=== PATIENT | female | born 1960 | race Caucasian/White ===

== ENCOUNTER 2016-10-05 12:46 | Inpatient (IN) | payer OTHER ==
[~2016-10-05 12:46] MED LIST: ASPIRIN81 M1 PO; MOBIC15 M2 PO; NORCO 5-325 TA1 EACH PO; OMEPRAZOLE20 M4 PO; PERIDEX118 ML SSP; TYLENOL EXTRA500 M1 PO
[2016-10-05 13:40] LABS: PROTHROMBIN TIME 11.6 SECONDS (9.0-13.6)
[2016-10-05 14:42] LABS: URINE BILIRUBIN MODERATE (NEG); URINE BLOOD SMALL (NEG); URINE GLUCOSE (UA) NEGATIVE (NEG); URINE KETONE SMALL (NEG); URINE LEUKOCYTE ESTERASE POSITIVE (NEG); URINE NITRITE NEGATIVE (NEG); URINE PROTEIN MODERATE (NEG)
[2016-10-05 14:43] LABS: URINE APPEARANCE CLOUDY; URINE COLOR DARK YELLOW
[2016-10-05 14:50] LABS: URINE OTHER VOLUME 4 ML
[2016-10-05 14:51] LABS: URINE EPITHELIAL CELLS 0 /[HPF] (0-10); URINE RBC 0 /[HPF] (0-5)
[2016-10-05 14:52] LABS: URINE BACTERIA 2+; URINE WBC 0-2 /[HPF] (0-5)
[2016-10-06 06:09] LABS: HCT-HEMATOCRIT 31.4 % (34.0-49.0); HGB-HEMOGLOBIN 10.5 gm/dl (12.0-15.5); IMMATURE GRANULOCYTES ABSOLUTE 0.01 tho/cmm (0-0.03); IMMATURE GRANULOCYTES PERCENT 0.2 % (0-0.3); LYMPH % 14.9 % (20-45); LYMPH ABSOLUTE COUNT 0.7 tho/cmm (0.8-4.5); MCHC MEAN CORPUSCULAR HGB CONC 33.4 % (32.0-36.0); MCV (MEAN CELL VOLUME) 104.7 fl (82.0-96.0); MEAN PLATELET VOLUME 11.7 cmc (9.4-12.4); MONOCYTE ABSOLUTE COUNT 0.3 tho/cmm (0.0-1.2); NEUTROPHIL ABSOLUTE COUNT 3.8 tho/cmm (1.6-8.0); NEUTROPHIL-AUTOMATED 3.8 tho/cmm (1.6-8.0); NEUTROPHILS % 78.9 % (40-80); RED CELL DISTRIBUTION WIDTH 12.8 % (12.4-16.4); WHITE BLOOD COUNT 4.8 tho/cmm (4.0-10.0)
[2016-10-06 10:00] LABS: PLATELET COUNT 92 tho/cmm (150-450)
[2016-10-08] MEDS ORDERED: ASPIRIN325 M3 PO (13:00)
[2016-10-08] MEDS ORDERED: MOBIC7.5 M2 PO (13:01)
[2016-10-08] MEDS ORDERED: ROXICODONE5 M2 PO (13:03)
[2016-10-08] MEDS ORDERED: ULTRAM50 M1 PO (13:05)
[2017-01-06] MEDS ORDERED: IBUPROFEN600 M1 PO (18:19)
[2017-01-06] MEDS ORDERED: NORCO 5-325 TA1 EACH PO (19:28)
== END 2016-10-08 16:24 | DRG 470 ==
LOC: SHSA 12:46 → ORE 16:28 → PACU 20:20 → 5EA 21:00
PROVIDERS: Physician Assistant; ADMIT Orthopaedic Surgery
PROC: 0SR904A Replacement of Right Hip Joint with Ceramic on Polyethylene Synthetic Substitute, Uncemented, Open Approach (ICD-10-PCS; principal; 2016-10-05)
DX: M16.11 Unilateral primary osteoarthritis, right hip (principal); M87.051 Idiopathic aseptic necrosis of right femur; K76.0 Fatty (change of) liver, not elsewhere classified; D47.2 Monoclonal gammopathy; K21.9 Gastro-esophageal reflux disease without esophagitis; B19.20 Unspecified viral hepatitis C without hepatic coma; Z79.899 Other long term (current) drug therapy; Z79.82 Long term (current) use of aspirin
CPT/HCPCS: C1776; J0171; J0690; J1885; J2270; J2795

== ENCOUNTER 2016-10-15 18:43 | Inpatient (IN) | payer OTHER ==
[~2016-10-15 18:43] MED LIST changes: +ASPIRIN325 M3 PO; +MOBIC7.5 M2 PO; +ROXICODONE5 M2 PO; +ULTRAM50 M1 PO
[2016-10-15] MEDS ORDERED: LAXATIVE5 M4 PO (19:08)
[2016-10-15 19:29] LABS: BASO % 0.1 % (0-2); HCT-HEMATOCRIT 30.4 % (34.0-49.0); HGB-HEMOGLOBIN 10.3 gm/dl (12.0-15.5); IMMATURE GRANULOCYTES ABSOLUTE 0.16 tho/cmm (0-0.03); IMMATURE GRANULOCYTES PERCENT 0.9 % (0-0.3); LYMPH % 4.5 % (20-45); LYMPH ABSOLUTE COUNT 0.8 tho/cmm (0.8-4.5); MCH (MEAN CORPUSCULAR HGB) 34.4 pg (28.0-32.0); MCHC MEAN CORPUSCULAR HGB CONC 33.9 % (32.0-36.0); MCV (MEAN CELL VOLUME) 101.7 fl (82.0-96.0); MEAN PLATELET VOLUME 10.8 cmc (9.4-12.4); MONO % 5.4 % (0-12); MONOCYTE ABSOLUTE COUNT 0.9 tho/cmm (0.0-1.2); NEUTROPHIL ABSOLUTE COUNT 15.4 tho/cmm (1.6-8.0); NEUTROPHIL-AUTOMATED 15.4 tho/cmm (1.6-8.0); NEUTROPHILS % 89.1 % (40-80); PLATELET COUNT 135 tho/cmm (150-450); RED BLOOD COUNT 2.99 mil/cmm (4.00-5.20); WHITE BLOOD COUNT 17.3 tho/cmm (4.0-10.0)
[2016-10-15 19:33] LABS: INR 1.3 INR (0.9-1.1); PROTHROMBIN TIME 14.8 SECONDS (9.0-13.6)
[2016-10-15 19:44] LABS: ANION GAP 16 mmol/L (0-20); BLOOD UREA NITROGEN 22 mg/dl (6-24); CALCIUM 8.2 mg/dl (8.5-10.5); CARBON DIOXIDE-VENOUS 18 mmol/L (22-32); CHLORIDE 96 mmol/l (96-110); CREATININE 1.84 mg/dl (0.50-1.10); GLUCOSE 102 mg/dL (70-110); MAGNESIUM 1.6 mg/dl (1.8-2.6); POTASSIUM 3.8 mmol/L (3.7-5.1); SODIUM 126 mmol/L (135-145); eGFR VALUE FOR BLACK 35 mL/Min
[2016-10-15 21:28] LABS: PROCALCITONIN 28.51 ng/ml (0.05-0.09)
[2016-10-16 00:09] LABS: URINE BILIRUBIN NEGATIVE (NEG); URINE BLOOD MODERATE (NEG); URINE GLUCOSE (UA) NEGATIVE (NEG); URINE KETONE NEGATIVE (NEG); URINE LEUKOCYTE ESTERASE POSITIVE (NEG); URINE NITRITE POSITIVE (NEG); URINE PROTEIN MODERATE (NEG); URINE SPECIFIC GRAVITY 1.015 (1.003-1.030)
[2016-10-16 00:10] LABS: URINE APPEARANCE CLOUDY; URINE COLOR YELLOW
[2016-10-16 00:16] LABS: URINE EPITHELIAL CELLS 0-1 /[HPF] (0-10)
[2016-10-16 00:17] LABS: URINE BACTERIA 2+; URINE WBC FULL FIELD /[HPF] (0-5)
[2016-10-16 03:23] LABS: ALB/GLOB RATIO 0.4 (0.8-2.0); ALKALINE PHOSPHATASE 70 U/L (33-138); ALT/SGPT 22 U/L (12-78); ANION GAP 15 mmol/L (0-20); AST/SGOT 42 U/L (10-40); BILIRUBIN,TOTAL 0.7 mg/dl (0-1.5); BLOOD UREA NITROGEN 22 mg/dl (6-24); CALCIUM 7.4 mg/dl (8.5-10.5); CARBON DIOXIDE-VENOUS 20 mmol/L (22-32); CHLORIDE 98 mmol/l (96-110); CREATININE 1.58 mg/dl (0.50-1.10); GLUCOSE 97 mg/dL (70-110); POTASSIUM 3.8 mmol/L (3.7-5.1); SODIUM 129 mmol/L (135-145); eGFR VALUE FOR BLACK 42 mL/Min
[2016-10-16 04:40] LABS: BASO % 0.1 % (0-2); EOS % 0.2 % (0-7); HCT-HEMATOCRIT 26.2 % (34.0-49.0); HGB-HEMOGLOBIN 8.9 gm/dl (12.0-15.5); IMMATURE GRANULOCYTES ABSOLUTE 0.06 tho/cmm (0-0.03); IMMATURE GRANULOCYTES PERCENT 0.6 % (0-0.3); LYMPH % 5.6 % (20-45); LYMPH ABSOLUTE COUNT 0.6 tho/cmm (0.8-4.5); MCH (MEAN CORPUSCULAR HGB) 34.4 pg (28.0-32.0); MCV (MEAN CELL VOLUME) 101.2 fl (82.0-96.0); MEAN PLATELET VOLUME 10.8 cmc (9.4-12.4); MONO % 6.2 % (0-12); MONOCYTE ABSOLUTE COUNT 0.7 tho/cmm (0.0-1.2); NEUTROPHIL ABSOLUTE COUNT 9.4 tho/cmm (1.6-8.0); NEUTROPHIL-AUTOMATED 9.4 tho/cmm (1.6-8.0); NEUTROPHILS % 87.3 % (40-80); PLATELET COUNT 112 tho/cmm (150-450); RED BLOOD COUNT 2.59 mil/cmm (4.00-5.20); RED CELL DISTRIBUTION WIDTH 12.9 % (12.4-16.4); WHITE BLOOD COUNT 10.7 tho/cmm (4.0-10.0)
[2016-10-16 05:03] LABS: ANION GAP 14 mmol/L (0-20); BLOOD UREA NITROGEN 23 mg/dl (6-24); CALCIUM 7.2 mg/dl (8.5-10.5); CARBON DIOXIDE-VENOUS 18 mmol/L (22-32); CHLORIDE 101 mmol/l (96-110); CREATININE 1.67 mg/dl (0.50-1.10); GLUCOSE 114 mg/dL (70-110); POTASSIUM 3.7 mmol/L (3.7-5.1); SODIUM 129 mmol/L (135-145); eGFR VALUE FOR BLACK 39 mL/Min
[2016-10-16 10:57] LABS: ABG CO2 ARTERIAL 17 mmol/L (21-27); ARTERIAL BLD GAS O2 SATURATION 99 % (95-98); ARTERIAL BLOOD GAS PCO2 25 mmHg (32-45); ARTERIAL PO2 113 mmHg (70-100); BICARBONATE 16 mmol/L (21-28); BLOOD GAS BASE EXCESS -7 mM/L (-/+3); PH 7.42 Units (7.35-7.45)
[2016-10-16 11:22] LABS: BASO % 0.1 % (0-2); EOS % 0.1 % (0-7); HCT-HEMATOCRIT 24.2 % (34.0-49.0); HGB-HEMOGLOBIN 8.3 gm/dl (12.0-15.5); IMMATURE GRANULOCYTES ABSOLUTE 0.04 tho/cmm (0-0.03); IMMATURE GRANULOCYTES PERCENT 0.4 % (0-0.3); LYMPH % 5.8 % (20-45); LYMPH ABSOLUTE COUNT 0.5 tho/cmm (0.8-4.5); MCH (MEAN CORPUSCULAR HGB) 34.9 pg (28.0-32.0); MCHC MEAN CORPUSCULAR HGB CONC 34.3 % (32.0-36.0); MCV (MEAN CELL VOLUME) 101.7 fl (82.0-96.0); MEAN PLATELET VOLUME 11.1 cmc (9.4-12.4); MONO % 6.4 % (0-12); MONOCYTE ABSOLUTE COUNT 0.6 tho/cmm (0.0-1.2); NEUTROPHIL ABSOLUTE COUNT 7.8 tho/cmm (1.6-8.0); NEUTROPHIL-AUTOMATED 7.8 tho/cmm (1.6-8.0); NEUTROPHILS % 87.2 % (40-80); PLATELET COUNT 84 tho/cmm (150-450); RED BLOOD COUNT 2.38 mil/cmm (4.00-5.20); RED CELL DISTRIBUTION WIDTH 13.1 % (12.4-16.4)
[2016-10-16 11:51] LABS: ALB/GLOB RATIO 0.3 (0.8-2.0); ALBUMIN 1.5 g/dl (3.5-5.0); ALKALINE PHOSPHATASE 55 U/L (33-138); ALT/SGPT 16 U/L (12-78); ANION GAP 13 mmol/L (0-20); AST/SGOT 34 U/L (10-40); BILIRUBIN,TOTAL 0.6 mg/dl (0-1.5); BLOOD UREA NITROGEN 20 mg/dl (6-24); CARBON DIOXIDE-VENOUS 17 mmol/L (22-32); CHLORIDE 108 mmol/l (96-110); GLUCOSE 123 mg/dL (70-110); POTASSIUM 3.1 mmol/L (3.7-5.1); SODIUM 135 mmol/L (135-145)
[2016-10-16 11:57] LABS: INR 1.4 INR (0.9-1.1); PROTHROMBIN TIME 16.5 SECONDS (9.0-13.6)
[2016-10-16 11:58] LABS: WBC MORPHOLOGY DOHLE BODIES
[2016-10-16 12:02] LABS: CREATININE 1.25 mg/dl (0.50-1.10); eGFR VALUE FOR BLACK 55 mL/Min
[2016-10-16 12:03] LABS: CALCIUM 6.3 mg/dl (8.5-10.5)
[2016-10-16 12:16] LABS: PROCALCITONIN 19.82 ng/ml (0.05-0.09)
[2016-10-17 01:16] LABS: MAGNESIUM 2.1 mg/dl (1.8-2.6); POTASSIUM 4.3 mmol/L (3.7-5.1)
[2016-10-17 05:23] LABS: ALB/GLOB RATIO 0.3 (0.8-2.0); ALBUMIN 1.6 g/dl (3.5-5.0); ALKALINE PHOSPHATASE 75 U/L (33-138); ALT/SGPT 17 U/L (12-78); ANION GAP 16 mmol/L (0-20); AST/SGOT 36 U/L (10-40); BILIRUBIN,TOTAL 0.7 mg/dl (0-1.5); BLOOD UREA NITROGEN 21 mg/dl (6-24); CALCIUM 6.9 mg/dl (8.5-10.5); CARBON DIOXIDE-VENOUS 15 mmol/L (22-32); CHLORIDE 108 mmol/l (96-110); CREATININE 1.19 mg/dl (0.50-1.10); FERRITIN 184 ng/ml (8-250); GLUCOSE 114 mg/dL (70-110); MAGNESIUM 1.8 mg/dl (1.8-2.6); POTASSIUM 4.2 mmol/L (3.7-5.1); SODIUM 135 mmol/L (135-145); eGFR VALUE FOR BLACK 59 mL/Min
[2016-10-17 05:28] LABS: IRON 10 ug/dl (37-170); IRON BINDING CAPACITY 134 ug/dl (250-450)
[2016-10-17 06:32] LABS: EOS % 0.3 % (0-7); HGB-HEMOGLOBIN 8.7 gm/dl (12.0-15.5); IMMATURE GRANULOCYTES ABSOLUTE 0.02 tho/cmm (0-0.03); IMMATURE GRANULOCYTES PERCENT 0.3 % (0-0.3); LYMPH % 5.7 % (20-45); LYMPH ABSOLUTE COUNT 0.4 tho/cmm (0.8-4.5); MCHC MEAN CORPUSCULAR HGB CONC 33.5 % (32.0-36.0); MCV (MEAN CELL VOLUME) 101.6 fl (82.0-96.0); MEAN PLATELET VOLUME 11.4 cmc (9.4-12.4); MONO % 4.8 % (0-12); MONOCYTE ABSOLUTE COUNT 0.3 tho/cmm (0.0-1.2); NEUTROPHIL ABSOLUTE COUNT 6.1 tho/cmm (1.6-8.0); NEUTROPHIL-AUTOMATED 6.1 tho/cmm (1.6-8.0); NEUTROPHILS % 88.9 % (40-80); PLATELET COUNT 94 tho/cmm (150-450); RED BLOOD COUNT 2.56 mil/cmm (4.00-5.20); RED CELL DISTRIBUTION WIDTH 13.1 % (12.4-16.4); WHITE BLOOD COUNT 6.8 tho/cmm (4.0-10.0)
[2016-10-18 05:11] LABS: BASO % 0.3 % (0-2); EOS % 0.9 % (0-7); HCT-HEMATOCRIT 27.8 % (34.0-49.0); HGB-HEMOGLOBIN 9.1 gm/dl (12.0-15.5); LYMPH % 10.7 % (20-45); LYMPH ABSOLUTE COUNT 0.4 tho/cmm (0.8-4.5); MCHC MEAN CORPUSCULAR HGB CONC 32.7 % (32.0-36.0); MCV (MEAN CELL VOLUME) 103.7 fl (82.0-96.0); MEAN PLATELET VOLUME 11.7 cmc (9.4-12.4); MONOCYTE ABSOLUTE COUNT 0.4 tho/cmm (0.0-1.2); NEUTROPHIL ABSOLUTE COUNT 2.6 tho/cmm (1.6-8.0); NEUTROPHIL-AUTOMATED 2.6 tho/cmm (1.6-8.0); NEUTROPHILS % 77.1 % (40-80); PLATELET COUNT 93 tho/cmm (150-450); RED BLOOD COUNT 2.68 mil/cmm (4.00-5.20); RED CELL DISTRIBUTION WIDTH 12.8 % (12.4-16.4); WHITE BLOOD COUNT 3.4 tho/cmm (4.0-10.0)
[2016-10-18 05:17] LABS: ANION GAP 11 mmol/L (0-20); BLOOD UREA NITROGEN 17 mg/dl (6-24); CALCIUM 7.6 mg/dl (8.5-10.5); CARBON DIOXIDE-VENOUS 18 mmol/L (22-32); CHLORIDE 106 mmol/l (96-110); CREATININE 1.14 mg/dl (0.50-1.10); GLUCOSE 93 mg/dL (70-110); MAGNESIUM 2.2 mg/dl (1.8-2.6); POTASSIUM 4.4 mmol/L (3.7-5.1); SODIUM 131 mmol/L (135-145); eGFR VALUE FOR BLACK 61 mL/Min
[2016-10-18 06:30] LABS: PROCALCITONIN 8.89 ng/ml (0.05-0.09)
[2016-10-19 04:50] LABS: BASO % 0.2 % (0-2); EOS % 0.9 % (0-7); HCT-HEMATOCRIT 28.3 % (34.0-49.0); HGB-HEMOGLOBIN 9.7 gm/dl (12.0-15.5); IMMATURE GRANULOCYTES ABSOLUTE 0.03 tho/cmm (0-0.03); IMMATURE GRANULOCYTES PERCENT 0.6 % (0-0.3); LYMPH % 10.9 % (20-45); LYMPH ABSOLUTE COUNT 0.5 tho/cmm (0.8-4.5); MCH (MEAN CORPUSCULAR HGB) 34.2 pg (28.0-32.0); MCHC MEAN CORPUSCULAR HGB CONC 34.3 % (32.0-36.0); MCV (MEAN CELL VOLUME) 99.6 fl (82.0-96.0); MEAN PLATELET VOLUME 11.2 cmc (9.4-12.4); MONOCYTE ABSOLUTE COUNT 0.5 tho/cmm (0.0-1.2); NEUTROPHIL ABSOLUTE COUNT 3.6 tho/cmm (1.6-8.0); NEUTROPHIL-AUTOMATED 3.6 tho/cmm (1.6-8.0); NEUTROPHILS % 77.4 % (40-80); PLATELET COUNT 117 tho/cmm (150-450); RED BLOOD COUNT 2.84 mil/cmm (4.00-5.20); WHITE BLOOD COUNT 4.7 tho/cmm (4.0-10.0)
[2016-10-19 05:06] LABS: ESR-ERYTHROCYTE SED RATE 84 mm/hr (0-30)
[2016-10-19 05:16] LABS: ALB/GLOB RATIO 0.2 (0.8-2.0); ALBUMIN 1.5 g/dl (3.5-5.0); ALKALINE PHOSPHATASE 88 U/L (33-138); ALT/SGPT 20 U/L (12-78); ANION GAP 14 mmol/L (0-20); AST/SGOT 45 U/L (10-40); BILIRUBIN,TOTAL 0.5 mg/dl (0-1.5); BLOOD UREA NITROGEN 14 mg/dl (6-24); CALCIUM 7.6 mg/dl (8.5-10.5); CARBON DIOXIDE-VENOUS 19 mmol/L (22-32); CHLORIDE 104 mmol/l (96-110); CREATININE 0.95 mg/dl (0.50-1.10); GLUCOSE 101 mg/dL (70-110); MAGNESIUM 1.8 mg/dl (1.8-2.6); POTASSIUM 4.6 mmol/L (3.7-5.1); SODIUM 132 mmol/L (135-145); eGFR VALUE FOR BLACK 77 mL/Min
[2016-10-19 20:14] LABS: PROCALCITONIN 3.93 ng/ml (0.05-0.09)
[2016-10-20 05:12] LABS: BASO % 0.6 % (0-2); EOS % 0.8 % (0-7); HCT-HEMATOCRIT 25.7 % (34.0-49.0); HGB-HEMOGLOBIN 8.8 gm/dl (12.0-15.5); IMMATURE GRANULOCYTES ABSOLUTE 0.02 tho/cmm (0-0.03); IMMATURE GRANULOCYTES PERCENT 0.4 % (0-0.3); LYMPH % 13.2 % (20-45); LYMPH ABSOLUTE COUNT 0.7 tho/cmm (0.8-4.5); MCHC MEAN CORPUSCULAR HGB CONC 34.2 % (32.0-36.0); MCV (MEAN CELL VOLUME) 99.2 fl (82.0-96.0); MONO % 10.2 % (0-12); MONOCYTE ABSOLUTE COUNT 0.5 tho/cmm (0.0-1.2); NEUTROPHILS % 74.8 % (40-80); PLATELET COUNT 120 tho/cmm (150-450); RED BLOOD COUNT 2.59 mil/cmm (4.00-5.20); RED CELL DISTRIBUTION WIDTH 13.2 % (12.4-16.4); WHITE BLOOD COUNT 5.3 tho/cmm (4.0-10.0)
[2016-10-22] MEDS ORDERED: CIPRO500 M2 PO (15:00)
[2016-10-22] MEDS ORDERED: TOPROL XL50 M1 PO (15:01)
[2016-10-22] MEDS ORDERED: TOPROL XL25 M1 PO (16:51)
[2017-01-06] MEDS ORDERED: IBUPROFEN600 M1 PO (18:19)
[2017-01-06] MEDS ORDERED: NORCO 5-325 TA1 EACH PO (19:28)
== END 2016-10-22 18:15 | DRG 871 ==
LOC: EDMED 18:43 → EMR2 22:41 → PCUB 10-16 01:59 → CCU 10-16 09:14 → 5WE 10-19 13:16
PROVIDERS: Emergency Medicine; Hospitalist; Internal Medicine; Internal Medicine Cardiovascular Disease; Internal Medicine Critical Care Medicine; Internal Medicine Interventional Cardiology; ADMIT Hospitalist
PROC: 02HV33Z Insertion of Infusion Device into Superior Vena Cava, Percutaneous Approach (ICD-10-PCS; principal; 2016-10-16)
DX: A41.51 Sepsis due to Escherichia coli [E. coli] (principal); J18.9 Pneumonia, unspecified organism; R65.21 Severe sepsis with septic shock; N17.9 Acute kidney failure, unspecified; E44.0 Moderate protein-calorie malnutrition; N12 Tubulo-interstitial nephritis, not specified as acute or chronic; E87.1 Hypo-osmolality and hyponatremia; K21.9 Gastro-esophageal reflux disease without esophagitis; M19.90 Unspecified osteoarthritis, unspecified site; D64.9 Anemia, unspecified
CPT/HCPCS: A9540; A9558; C1751; C1758; C8929; G0009; J0610; J1650; J1940; J1956; J2543; J3370; J3475; J3480; J7030; J7040; J7050; Q9967